=== PATIENT | female | born 1970 | race Caucasian/White ===

== ENCOUNTER → 2024-12-16 | Outpatient (CLI) | payer OTHER, SELFPAY ==
--- NOTE | 2024-12-16 09:20 | XR_ITS ---
Examination: Bilateral hands, 6 views. Technique: AP, Oblique, Lateral each hand total 6 views Date and time of exam: December 16, 2024 0940 hours INDICATIONS: Bilateral wrist and hand pain 6 months. FINDINGS: Moderate osteopenia Bilateral mild diffuse narrowing joints of the wrists and hands No erosive arthritis No fractures No cortical bone destruction Impression: Moderate osteopenia Bilateral mild diffuse narrowing joints of the wrists and hands No erosive arthritis
--- NOTE | 2024-12-16 09:20 | XR_ITS ---
Examination: Bilateral wrists 6 views TECHNIQUE: AP oblique lateral each wrist total 6 views Exam date and time: December 08, 2024 0945 hours INDICATIONS: Bilateral wrist pain 6 months FINDINGS: Moderate osteopenia Mild narrowing radiocarpal intercarpal and carpometacarpal joints No erosive arthritis No fractures No avascular necrosis IMPRESSION: Moderate osteopenia Mild narrowing radiocarpal intercarpal and carpometacarpal joints
== END | disposition home or self-care (01) ==
PROVIDERS: PCP Nurse Practitioner Family
DX: M85.842 Other specified disorders of bone density and structure, left hand (principal); M85.841 Other specified disorders of bone density and structure, right hand; M25.842 Other specified joint disorders, left hand; M25.841 Other specified joint disorders, right hand; M25.832 Other specified joint disorders, left wrist; M25.831 Other specified joint disorders, right wrist; M85.88 Other specified disorders of bone density and structure, other site
CPT/HCPCS: 73110; 73130

== ENCOUNTER → 2025-03-31 | Outpatient (CLI) | payer OTHER, SELFPAY ==
--- NOTE | 2025-03-31 12:00 | XR_ITS ---
Examination: Bone densitometry Date and time of exam:March 31, 2025 1202 hours INDICATIONS: Menopause age 49, family history, father hip fracture vitamin D and calcium 10 years, personal history osteopenia Technique: Lumbar spine and hip total bone mineralization values of an calculated. Peak reference and age match control results have been displayed. Findings: Lumbar spine total bone mineralization is0.891 gm/cm2. This is 1.4 standard deviations below peak reference. This is 0.2 standard deviations below age-matched controls. Hip total bone mineralization is 0.683 gm/cm2 This is 2.1 standard deviations below peak reference. This is 1.3 standard deviations below age-matched controls Impression: There is osteopenia based on lumbar spine measurements. There is osteoporosis based on hip measurements Lumbar mineralization is decreased 9.3% compared with 05/28/2018. Hip mineralization is decreased 5.2% compared with 05/28/2018
== END | disposition home or self-care (01) ==
LOC: CDIM 11:36
PROVIDERS: Referring Provider Nurse Practitioner Family; Visit Provider Nurse Practitioner Family
DX: M85.88 Other specified disorders of bone density and structure, other site (principal); M81.0 Age-related osteoporosis without current pathological fracture
CPT/HCPCS: 77080